=== PATIENT | male | born 1995 | race Caucasian/White ===

== ENCOUNTER 2022-10-27 20:43 | Emergency (ER) | payer MEDICAID ==
[~2022-10-27] VITALS: Ht 182.9 cm; Wt 72.0 kg
[2022-10-27 20:56] VITALS: BP 139/78
[2022-10-27] MEDS ORDERED: IBUP-2029 MT (22:21)
== END 2022-10-27 22:50 | disposition home or self-care (01) ==
LOC: ER 20:43
DX: S93.491A Sprain of other ligament of right ankle, initial encounter (principal); V00.131A Fall from skateboard, initial encounter; Y93.51 Activity, roller skating (inline) and skateboarding; Y92.488 Other paved roadways as the place of occurrence of the external cause
CPT/HCPCS: 73610; 99283